=== PATIENT | female | born 1980 | race Asian ===

== ENCOUNTER 2022-09-19 08:57 | Inpatient (IN) | payer MEDICAID ==
[~2022-09-19] VITALS: Ht 157.5 cm; Wt 61.6 kg
[2022-09-19] MEDS ORDERED: SODIUM CHLORIDE 0.9% 1,000 ML IV ONE ×2 (09:30→10:15)
[2022-09-19 09:34] LABS: BASOPHILS % (AUTO) 0.5 % (0.0-2.0); EOSINOPHILS % (AUTO) 0.2 % (1.0-6.0); HEMATOCRIT 47.8 % (36-46); LYMPHOCYTES # (AUTO) 2.6 K/uL (1.0-4.8); LYMPHOCYTES % (AUTO) 22.3 % (22.0-44.0); MEAN CORPUSCULAR HGB CONC 31.4 G/dL (31.0-37.0); MEAN CORPUSCULAR VOLUME 95 fL (80-100); MONOCYTES # (AUTO) 0.5 K/uL (0.1-1.0); MONOCYTES % (AUTO) 4.4 % (2.0-9.0); NEUTROPHILS # (AUTO) 8.4 K/uL (1.8-7.7); NEUTROPHILS % (AUTO) 72.6 % (40.0-70.0); PLATELET COUNT (AUTO) 371 K/uL (150-450); RED BLOOD CELL COUNT(AUTO) 5.02 MIL/uL (4.00-5.20); RED CELL DISTRIBUTION WIDTH 14.5 % (11.5-14.5)
[2022-09-19 09:45] LABS: INR 0.9 (0.9-1.1); PROTHROMBIN TIME 9.7 SEC (9.4-11.6)
[2022-09-19] MEDS ORDERED: ONDANSETRON HCL 4 MG/2 ML VIAL IVP ONE (09:45)
[2022-09-19 09:46] LABS: ALBUMIN 4.1 g/dL (3.4-5.0); BILIRUBIN,TOTAL 0.5 mg/dL (0.1-1.0); CALCIUM, TOTAL 9.8 mg/dL (8.8-10.5); CREATININE 1.3 mg/dL (0.60-1.30); POTASSIUM 5.3 mmol/L (3.5-5.1); TOTAL PROTEIN, SERUM 8.1 g/dL (6.4-8.2)
[2022-09-19 09:52] LABS: LACTIC ACID 1.6 mmol/L (0.4-2.0)
[2022-09-19 09:58] LABS: APPEARANCE,URINE CLEAR (CLEAR); BILIRUBIN,URINE NEGATIVE (NEGATIVE); GLUCOSE, URINE (UA) >=1000 mg/dL (NEGATIVE); KETONES,URINE =>150 mg/dL (NEGATIVE); LEUKOCYTE ESTERASE ,URINE NEGATIVE (NEGATIVE); NITRATE,URINE NEGATIVE (NEGATIVE); OCCULT BLOOD,URINE SMALL (NEGATIVE); PROTEIN,URINE 30-70 mg/dL (NEGATIVE); UROBILINOGEN,URINE <=1.0 mg/dL (<=1.0)
[2022-09-19] MEDS ORDERED: DEXTROSE 50%-WATER 25 GM/50 ML SYRINGE IVP PRN (10:00)
[2022-09-19] MEDS ORDERED: SODIUM CHLORIDE 0.45% 1,000 ML IV PRN (10:00)
[2022-09-19] MEDS ORDERED: POTASSIUM CHLORIDE 40 MEQ in SODIUM CHLORIDE 0.45% 1,000 ML IV PRN (10:00)
[2022-09-19] MEDS ORDERED: INSULIN REGULAR, HUMAN 100 UNITS in SODIUM CHLORIDE 0.9% 99 ML IV SCH ×2 (10:00)
[2022-09-19] MEDS ORDERED: SODIUM CHLORIDE 0.9% 1,000 ML IV SCH (10:00)
[2022-09-19] MEDS ORDERED: INSULIN REGULAR, HUMAN 100 UNITS/ML IVP ONE (10:00)
[2022-09-19 10:07] LABS: BACTERIA,URINE None Seen /HPF (None Seen); FINE GRANULAR CASTS,URINE 0-2 /LPF (None Seen); SQUAMOUS EPITHELIAL CELL,UR Few /LPF (None Seen); WBC,URINE 0-2 /HPF (0-5)
[2022-09-19] MEDS: INSULIN REGULAR, HUMAN 100 UNITS in SODIUM CHLORIDE 0.9% 99 ML IV PRN ×4 (10:31→22:37)
[2022-09-19] MEDS: POTASSIUM CHL 20 MEQ/0.45% NS 1,000 ML IV PRN ×2 (10:48→14:10)
[2022-09-19] MEDS ORDERED: PANTOPRAZOLE SODIUM 40 MG/VIAL IVP SCH (11:00)
[2022-09-19] MEDS ORDERED: ACETAMINOPHEN 325 MG TABLET PO PRN (11:00)
[2022-09-19] MEDS ORDERED: ONDANSETRON HCL 4 MG/2 ML VIAL IVP PRN (11:00)
[2022-09-19 11:16] LABS: ABG BASE EXCESS -32.2 mmol/L (-2.0-3.0); ABG CARBOXYHEMOGLOBIN 0.3 % (0.0-1.5); ABG METHEMOGLOBIN 0.8 % (0.0-1.5); ABG OXYGEN CONTENT 7.5 mL/dL (15.0-23.0); ABG OXYHEMOGLOBIN 74.5 % (94.0-100.0); TEMPERATURE, FAHRENHEIT, BG 98.6 FAHREN (96.0-98.6)
[2022-09-19 11:17] LABS: ABG HCO3 2.6 mmol/L (22.0-26.0); ABG OXYGEN SATURATION 75.3 % (95.0-98.0); ABG PCO2 11 mmHg (35-45); ABG PH 6.833 (7.35-7.450); ABG TOTAL HEMOGLOBIN 7.1 G/dL (12.0-18.0)
[2022-09-19 11:18] LABS: ABG A-A DIFF O2 80.8 mmHg (10-20.0); O2 DEVICE,BLOOD GAS ROOM AIR (ROOM AIR)
[2022-09-19 11:21] LABS: GLUCOSE,POINT OF CARE 470 MG/DL (70-110)
[2022-09-19 11:54] LABS: SITE, BLOOD GAS MIXED VENOUS
[2022-09-19 11:58] LABS: SOURCE, BLOOD GAS MIXED VENOUS
[2022-09-19 12:00] VITALS: BP 163/87
[2022-09-19] MEDS: INSULIN REGULAR, HUMAN 100 UNITS/ML IVP PRN ×2 (12:16→13:00)
[2022-09-19] MEDS: DEXTROSE 5%-0.45% SODIUM CHL 1,000 ML IV PRN (13:56)
[2022-09-19 14:27] LABS: ANION GAP 23 mmol/L (8-16); CHLORIDE 109 mmol/L (98-107); CREATININE 0.89 mg/dL (0.60-1.30); GLOMERULAR FILTR. RATE CALC > 60 mL/min (>60); GLUCOSE,RANDOM 210 mg/dL (70-110); POTASSIUM 4.8 mmol/L (3.5-5.1); SODIUM SERUM 138 mmol/L (136-145)
[2022-09-19 14:29] LABS: CARBON DIOXIDE 6 mmol/L (22-29)
[2022-09-19 16:00] VITALS: BP 130/69
[2022-09-19] MEDS: HEPARIN SODIUM,PORCINE 5,000 UNITS/ML VIAL SQ SCH (16:15)
[2022-09-19 18:05] LABS: ANION GAP 15 mmol/L (8-16); CALCIUM, TOTAL 8.2 mg/dL (8.8-10.5); CARBON DIOXIDE 12 mmol/L (22-29); CHLORIDE 109 mmol/L (98-107); CREATININE 0.83 mg/dL (0.60-1.30); GLOMERULAR FILTR. RATE CALC > 60 mL/min (>60); GLUCOSE,RANDOM 161 mg/dL (70-110); POTASSIUM 3.9 mmol/L (3.5-5.1); SODIUM SERUM 136 mmol/L (136-145)
[2022-09-19 18:08] LABS: MAGNESIUM 1.7 mg/dL (1.80-2.40); PHOSPHORUS 1.8 mg/dL (2.5-4.9)
[2022-09-19] MEDS ORDERED: MAGNESIUM SULFATE 3 GM in DEXTROSE 5%-WATER 100 ML IV ONE (19:00)
[2022-09-19 19:26] LABS: GLUCOSE,POINT OF CARE 227 MG/DL (70-110)
[2022-09-19 19:26] LABS: GLUCOSE,POINT OF CARE 150 MG/DL (70-110)
[2022-09-19 19:26] LABS: GLUCOSE,POINT OF CARE 275 MG/DL (70-110)
[2022-09-19 19:26] LABS: GLUCOSE,POINT OF CARE 300 MG/DL (70-110)
[2022-09-19 19:26] LABS: GLUCOSE,POINT OF CARE 159 MG/DL (70-110)
[2022-09-19 19:26] LABS: GLUCOSE,POINT OF CARE 193 MG/DL (70-110)
[2022-09-19 19:26] LABS: GLUCOSE,POINT OF CARE 187 MG/DL (70-110)
[2022-09-19 19:26] LABS: GLUCOSE,POINT OF CARE 127 MG/DL (70-110)
[2022-09-19 20:00] VITALS: BP 135/62
[2022-09-19] MEDS ORDERED: SODIUM PHOS,M-BASIC-D-BASIC 30 MMOL in DEXTROSE 5%-WATER 250 ML IV ONE (20:00)
[2022-09-19 22:17] LABS: ANION GAP 14 mmol/L (8-16); CALCIUM, TOTAL 8.1 mg/dL (8.8-10.5); CARBON DIOXIDE 14 mmol/L (22-29); CHLORIDE 109 mmol/L (98-107); CREATININE 0.84 mg/dL (0.60-1.30); GLOMERULAR FILTR. RATE CALC > 60 mL/min (>60); GLUCOSE,RANDOM 219 mg/dL (70-110); POTASSIUM 3.3 mmol/L (3.5-5.1); SODIUM SERUM 137 mmol/L (136-145)
[2022-09-19 22:22] LABS: MAGNESIUM 2.4 mg/dL (1.80-2.40); PHOSPHORUS 3.2 mg/dL (2.5-4.9)
[2022-09-19 23:16] LABS: GLUCOSE,POINT OF CARE 223 MG/DL (70-110)
[2022-09-19 23:16] LABS: GLUCOSE,POINT OF CARE 109 MG/DL (70-110)
[2022-09-20] VITALS: BP 123/63
[2022-09-20] MEDS: HEPARIN SODIUM,PORCINE 5,000 UNITS/ML VIAL SQ SCH ×3 (00:14→15:58)
[2022-09-20 00:22] LABS: GLUCOSE,POINT OF CARE 143 MG/DL (70-110)
[2022-09-20] MEDS: DEXTROSE 5%-0.45% SODIUM CHL 1,000 ML IV PRN (02:14)
[2022-09-20 02:23] LABS: ANION GAP 14 mmol/L (8-16); CALCIUM, TOTAL 8.1 mg/dL (8.8-10.5); CARBON DIOXIDE 15 mmol/L (22-29); CHLORIDE 109 mmol/L (98-107); CREATININE 0.61 mg/dL (0.60-1.30); GLOMERULAR FILTR. RATE CALC > 60 mL/min (>60); GLUCOSE,RANDOM 92 mg/dL (70-110); PHOSPHORUS 3.2 mg/dL (2.5-4.9); POTASSIUM 3.5 mmol/L (3.5-5.1); SODIUM SERUM 138 mmol/L (136-145)
[2022-09-20 03:16] LABS: GLUCOSE,POINT OF CARE 75 MG/DL (70-110)
[2022-09-20 04:00] VITALS: BP 124/66
[2022-09-20 04:16] LABS: GLUCOSE,POINT OF CARE 60 MG/DL (70-110)
[2022-09-20 04:16] LABS: GLUCOSE,POINT OF CARE 153 MG/DL (70-110)
[2022-09-20 04:16] LABS: GLUCOSE,POINT OF CARE 84 MG/DL (70-110)
[2022-09-20 05:22] LABS: GLUCOSE,POINT OF CARE 157 MG/DL (70-110)
[2022-09-20 05:22] LABS: GLUCOSE,POINT OF CARE 119 MG/DL (70-110)
[2022-09-20 06:11] LABS: ALANINE AMINOTRANSFERASE 21 U/L (12-78); ALBUMIN 2.8 g/dL (3.4-5.0); ALKALINE PHOSPHATASE 104 U/L (46-116); ANION GAP 14 mmol/L (8-16); ASPARTATE AMINOTRANSFERASE 17 U/L (15-37); BILIRUBIN,TOTAL 0.3 mg/dL (0.1-1.0); CALCIUM, TOTAL 8.1 mg/dL (8.8-10.5); CARBON DIOXIDE 15 mmol/L (22-29); CHLORIDE 109 mmol/L (98-107); CREATININE 0.68 mg/dL (0.60-1.30); GLOMERULAR FILTR. RATE CALC > 60 mL/min (>60); GLUCOSE,RANDOM 119 mg/dL (70-110); PHOSPHORUS 2.7 mg/dL (2.5-4.9); POTASSIUM 3.3 mmol/L (3.5-5.1); SODIUM SERUM 138 mmol/L (136-145); TOTAL PROTEIN, SERUM 5.7 g/dL (6.4-8.2)
[2022-09-20 07:06] LABS: GLUCOSE,POINT OF CARE 104 MG/DL (70-110)
[2022-09-20 08:00] VITALS: BP 156/78
[2022-09-20 08:21] LABS: GLUCOSE,POINT OF CARE 102 MG/DL (70-110)
[2022-09-20] MEDS ORDERED: DEXTROSE 50%-WATER 25 GM/50 ML SYRINGE IVP PRN (08:30)
[2022-09-20] MEDS ORDERED: POTASSIUM CHLORIDE 20 MEQ ER TABLET PO PRN (08:30)
[2022-09-20] MEDS: PANTOPRAZOLE SODIUM 40 MG DR TABLET PO SCH (09:22)
[2022-09-20] MEDS: CETIRIZINE HCL 10 MG TABLET PO SCH (09:23)
[2022-09-20 11:00] LABS: ANION GAP 15 mmol/L (8-16); CARBON DIOXIDE 16 mmol/L (22-29); CHLORIDE 106 mmol/L (98-107); CREATININE 0.61 mg/dL (0.60-1.30); GLOMERULAR FILTR. RATE CALC > 60 mL/min (>60); GLUCOSE,RANDOM 191 mg/dL (70-110); POTASSIUM 3.5 mmol/L (3.5-5.1); SODIUM SERUM 137 mmol/L (136-145)
[2022-09-20 12:00] VITALS: BP 132/67
[2022-09-20] MEDS: INSULIN LISPRO 100 UNITS/ML SQ PRN ×2 (12:00→17:21)
[2022-09-20 12:06] LABS: GLUCOSE,POINT OF CARE 130 MG/DL (70-110)
[2022-09-20 14:22] LABS: ANION GAP 16 mmol/L (8-16); CALCIUM, TOTAL 8.3 mg/dL (8.8-10.5); CARBON DIOXIDE 15 mmol/L (22-29); CHLORIDE 108 mmol/L (98-107); CREATININE 0.83 mg/dL (0.60-1.30); GLOMERULAR FILTR. RATE CALC > 60 mL/min (>60); GLUCOSE,RANDOM 215 mg/dL (70-110); POTASSIUM 3.4 mmol/L (3.5-5.1); SODIUM SERUM 139 mmol/L (136-145)
[2022-09-20] MEDS ORDERED: POTASSIUM CHLORIDE 20 MEQ ER TABLET PO ONE (15:00)
[2022-09-20 16:00] VITALS: BP 133/68
[2022-09-20] MEDS ORDERED: INSULIN REGULAR, HUMAN 100 UNITS in SODIUM CHLORIDE 0.9% 99 ML IV PRN ×2 (16:15)
[2022-09-20 17:21] LABS: GLUCOSE,POINT OF CARE 181 MG/DL (70-110)
[2022-09-20 17:21] LABS: GLUCOSE,POINT OF CARE 289 MG/DL (70-110)
[2022-09-20 17:21] LABS: GLUCOSE,POINT OF CARE 325 MG/DL (70-110)
[2022-09-20] MEDS: DEXTROSE 5%-0.45% SODIUM CHL 1,000 ML IV SCH (17:21)
[2022-09-20 20:00] VITALS: BP 113/60
[2022-09-20] MEDS ORDERED: INSULIN GLARGINE,HUM.REC.ANLOG 100 UNITS/ML SQ SCH (21:00)
[2022-09-20 21:07] LABS: ANION GAP 16 mmol/L (8-16); CALCIUM, TOTAL 8.2 mg/dL (8.8-10.5); CARBON DIOXIDE 15 mmol/L (22-29); CHLORIDE 105 mmol/L (98-107); CREATININE 0.79 mg/dL (0.60-1.30); GLOMERULAR FILTR. RATE CALC > 60 mL/min (>60); PHOSPHORUS 2.1 mg/dL (2.5-4.9); POTASSIUM 4.8 mmol/L (3.5-5.1); SODIUM SERUM 136 mmol/L (136-145)
[2022-09-20 21:10] LABS: GLUCOSE,RANDOM 432 mg/dL (70-110)
[2022-09-20] MEDS ORDERED: SODIUM PHOS,M-BASIC-D-BASIC 30 MMOL in DEXTROSE 5%-WATER 250 ML IV ONE (22:00)
[2022-09-20 23:11] LABS: GLUCOSE,POINT OF CARE 342 MG/DL (70-110)
[2022-09-21] VITALS: BP 164/84
[2022-09-21] MEDS: HEPARIN SODIUM,PORCINE 5,000 UNITS/ML VIAL SQ SCH ×2 (00:02→08:24)
[2022-09-21 00:26] LABS: GLUCOSE,POINT OF CARE 393 MG/DL (70-110)
[2022-09-21 00:26] LABS: GLUCOSE,POINT OF CARE 381 MG/DL (70-110)
[2022-09-21 01:50] LABS: ANION GAP 16 mmol/L (8-16); CALCIUM, TOTAL 8.2 mg/dL (8.8-10.5); CARBON DIOXIDE 16 mmol/L (22-29); CHLORIDE 102 mmol/L (98-107); CREATININE 0.67 mg/dL (0.60-1.30); GLOMERULAR FILTR. RATE CALC > 60 mL/min (>60); POTASSIUM 4.2 mmol/L (3.5-5.1); SODIUM SERUM 134 mmol/L (136-145)
[2022-09-21 01:51] LABS: GLUCOSE,RANDOM 436 mg/dL (70-110)
[2022-09-21 03:16] LABS: GLUCOSE,POINT OF CARE 373 MG/DL (70-110)
[2022-09-21 04:00] VITALS: BP 147/81
[2022-09-21] MEDS: DEXTROSE 5%-0.45% SODIUM CHL 1,000 ML IV SCH (04:58)
[2022-09-21 05:58] LABS: BASOPHILS % (AUTO) 0.9 % (0.0-2.0); EOSINOPHILS % (AUTO) 0.5 % (1.0-6.0); HEMATOCRIT 36.3 % (36-46); HEMOGLOBIN 12.4 g/dL (12.0-16.0); LYMPHOCYTES # (AUTO) 1.6 K/uL (1.0-4.8); LYMPHOCYTES % (AUTO) 32.2 % (22.0-44.0); MEAN CORPUSCULAR HEMOGLOBIN 30.3 pg (26.0-34.0); MEAN CORPUSCULAR HGB CONC 34.2 G/dL (31.0-37.0); MEAN CORPUSCULAR VOLUME 89 fL (80-100); MONOCYTES # (AUTO) 0.4 K/uL (0.1-1.0); MONOCYTES % (AUTO) 7.7 % (2.0-9.0); NEUTROPHILS # (AUTO) 2.9 K/uL (1.8-7.7); NEUTROPHILS % (AUTO) 58.7 % (40.0-70.0); PLATELET COUNT (AUTO) 233 K/uL (150-450); RED BLOOD CELL COUNT(AUTO) 4.09 MIL/uL (4.00-5.20); RED CELL DISTRIBUTION WIDTH 13.9 % (11.5-14.5)
[2022-09-21 06:14] LABS: ALKALINE PHOSPHATASE 112 U/L (46-116); ANION GAP 15 mmol/L (8-16); CALCIUM, TOTAL 8.5 mg/dL (8.8-10.5); CARBON DIOXIDE 19 mmol/L (22-29); CHLORIDE 106 mmol/L (98-107); CREATININE 0.59 mg/dL (0.60-1.30); GLOMERULAR FILTR. RATE CALC > 60 mL/min (>60); GLUCOSE,RANDOM 217 mg/dL (70-110); SODIUM SERUM 140 mmol/L (136-145)
[2022-09-21 06:46] LABS: GLUCOSE,POINT OF CARE 213 MG/DL (70-110)
[2022-09-21 06:46] LABS: GLUCOSE,POINT OF CARE 300 MG/DL (70-110)
[2022-09-21 06:49] LABS: POTASSIUM 2.8 mmol/L (3.5-5.1)
[2022-09-21] MEDS: POTASSIUM CHL 10 MEQ/WATER 50 ML IV PRN ×3 (06:53→12:32)
[2022-09-21] MEDS ORDERED: *CLINICAL-CEFEPIME DOSING CLINICAL ONE (07:45)
[2022-09-21 08:00] VITALS: BP 150/82
[2022-09-21] MEDS ORDERED: MetroNIDAZOLE 500 MG/NACL 100 ML IV SCH (08:00)
[2022-09-21] MEDS: PANTOPRAZOLE SODIUM 40 MG DR TABLET PO SCH (08:24)
[2022-09-21] MEDS: CETIRIZINE HCL 10 MG TABLET PO SCH (08:26)
[2022-09-21] MEDS ORDERED: CEFEPIME HCL 2 GM in DEXTROSE 5%-WATER 50 ML IV SCH (09:00)
[2022-09-21] MEDS ORDERED: DOXYCYCLINE HYCLATE 100 MG TABLET PO SCH (09:00)
[2022-09-21] MEDS ORDERED: INSULIN GLARGINE,HUM.REC.ANLOG 100 UNITS/ML SQ SCH (09:00)
[2022-09-21] MEDS ORDERED: POTASSIUM CHLORIDE 20 MEQ ER TABLET PO ONE (09:30)
[2022-09-21] MEDS ORDERED: SODIUM CHLORIDE 0.9% 250 ML IV ONE (09:49)
[2022-09-21 10:23] LABS: ANION GAP 10 mmol/L (8-16); CALCIUM, TOTAL 8.7 mg/dL (8.8-10.5); CARBON DIOXIDE 23 mmol/L (22-29); CHLORIDE 107 mmol/L (98-107); CREATININE 0.44 mg/dL (0.60-1.30); GLOMERULAR FILTR. RATE CALC > 60 mL/min (>60); GLUCOSE,RANDOM 126 mg/dL (70-110); POTASSIUM 3.5 mmol/L (3.5-5.1); SODIUM SERUM 140 mmol/L (136-145)
[2022-09-21] MEDS ORDERED: BUPIVACAINE HCL/PF 0.5% 30 ML VIAL ONE (10:59)
[2022-09-21] MEDS ORDERED: LIDOCAINE/PF 2% 5 ML VIAL ONE (10:59)
[2022-09-21 12:00] VITALS: BP 138/76
[2022-09-21] MEDS ORDERED: INSULIN GLARGINE,HUM.REC.ANLOG 100 UNITS/ML SQ ONE (12:00)
[2022-09-21] MEDS: INSULIN LISPRO 100 UNITS/ML SQ PRN (12:36)
[2022-09-21] MEDS ORDERED: MIDAZOLAM HCL 2 MG/2 ML VIAL IVP ONE (15:29)
[2022-09-21] MEDS ORDERED: PROPOFOL 1% 20 ML VIAL IVP ONE (15:29)
[2022-09-21] MEDS ORDERED: FentaNYL CITRATE PF 100 MCG/2 ML VIAL IVP ONE (15:29)
[2022-09-21] MEDS ORDERED: LIDOCAINE/PF 2% 5 ML VIAL IM ONE (15:29)
[2022-09-21] MEDS ORDERED: MetroNIDAZOLE 500 MG TABLET PO SCH (16:00)
[2022-09-21 18:01] LABS: GLUCOSE,POINT OF CARE 117 MG/DL (70-110)
[2022-09-21 18:01] LABS: GLUCOSE,POINT OF CARE 114 MG/DL (70-110)
[2022-09-21 18:01] LABS: GLUCOSE,POINT OF CARE 103 MG/DL (70-110)
[2022-09-21 18:01] LABS: GLUCOSE,POINT OF CARE 130 MG/DL (70-110)
[2022-09-21 18:01] LABS: GLUCOSE,POINT OF CARE 142 MG/DL (70-110)
[2022-09-21] MEDS ORDERED: CEFUROXIME AXETIL 250 MG TABLET PO SCH (21:00)
== END 2022-09-21 15:30 | disposition left against medical advice (07) | DRG 518 ==
LOC: EMS 08:59 → ICU 11:45
PROVIDERS: ADMIT Internal Medicine; ATTEND Internal Medicine
PROC: 0U9M0ZZ Drainage of Vulva, Open Approach (ICD-10-PCS; principal; 2022-09-21 11:00)
DX: N76.4 Abscess of vulva (principal); E10.10 Type 1 diabetes mellitus with ketoacidosis without coma; R65.10 Systemic inflammatory response syndrome (SIRS) of non-infectious origin without acute organ dysfunction; L02.214 Cutaneous abscess of groin; L03.314 Cellulitis of groin; Z53.21 Procedure and treatment not carried out due to patient leaving prior to being seen by health care provider; E87.5 Hyperkalemia; F10.90 Alcohol use, unspecified, uncomplicated; E87.6 Hypokalemia; Z88.0 Allergy status to penicillin; Z83.3 Family history of diabetes mellitus; Z91.148 Patient's other noncompliance with medication regimen for other reason; Z79.4 Long term (current) use of insulin
CPT/HCPCS: 71045; 80048; 80053; 81001; 82805; 82962; 83605; 83735; 83930; 84075; 84100; 84484; 85025; 85610; 85730; 87081; 93005; 99291; C9113; G0378; J0692; J1644; J1815; J2250; J2405; J2704; J3010; J3475; J3480; J3490; J7050; J7060; 36415-L1; 36415-TC; X7700

== ENCOUNTER 2024-06-16 22:58 | Emergency (ER) | payer MEDICAID ==
[~2024-06-16] VITALS: Ht 157.5 cm; Wt 61.8 kg
[~2024-06-16 22:58] MED LIST: ATEN-73 PO; ATOR40TA71 PO; CLIN300C58 PO; INSU100I26 SQ; INSU100I3 SQ; LISI2.5T13 PO
[2024-06-16 23:22] VITALS: TEMP 97.9
[2024-06-17] MEDS ORDERED: ACET-66 PO (00:57)
[2024-06-17] MEDS ORDERED: IBUP-1554 PO (00:57)
[2024-06-17] MEDS ORDERED: CEPH-558 PO (00:57)
[2024-06-17] MEDS: SULFACETAMIDE SODIUM 10% 15 ML OPHTHALMIC SOLUTION OS ONE (01:46)
[2024-06-17] MEDS: CEPHALEXIN MONOHYDRATE 500 MG CAPSULE PO ONE (01:47)
[2024-06-17] MEDS: ACETAMINOPHEN 500 MG TABLET PO ONE (01:47)
[2024-06-17] MEDS: IBUPROFEN 600 MG TABLET PO ONE (01:47)
[2024-06-17] MEDS: DOXYCYCLINE HYCLATE 100 MG TABLET PO ONE (01:47)
[2024-06-17 01:51] VITALS: BP 138/77; PULSE 96; RESP 15; O2SAT 100
== END 2024-06-17 02:00 | disposition home or self-care (01) ==
LOC: EMS 23:02
DX: H00.014 Hordeolum externum left upper eyelid (principal); H10.9 Unspecified conjunctivitis; E11.9 Type 2 diabetes mellitus without complications; F17.290 Nicotine dependence, other tobacco product, uncomplicated; Z88.0 Allergy status to penicillin; Z79.899 Other long term (current) drug therapy
CPT/HCPCS: 82962; 99284; Z7502; Z7610